=== PATIENT | female | born 1970 ===

== ENCOUNTER 2016-09-11 19:44 | Emergency (ER) | payer OTHER ==
[2016-09-11 20:25] VITALS: BP 126/81; PULSE 108; RESP 18; O2SAT 99
[2016-09-11 20:38] VITALS: TEMP 98.7
--- NOTE | 2016-09-11 21:26 | C.PDOC ---
History Of Present Illness Patient complaining of left arm pain for 2 days that is aching and throbbing in nature, starts in the shoulder and radiates to elbow. Patient has history of RA but not taking any medications. She did not take any medication for pain. Denies any injury, numbness, weakness, fever, swelling, redness. Time Seen by Provider: 09/11/16 20:32 Chief Complaint (Nursing): Upper Extremity Problem/Injury History Per: Patient History/Exam Limitations: no limitations Onset/Duration Of Symptoms: Days Current Symptoms Are (Timing): Still Present Quality: Aching Severity: Moderate Exacerbating Factor(s): Movement Recent travel outside of the [place]: No Additional History Per: Patient Past Medical History Reviewed: Historical Data, Nursing Documentation, Vital Signs Vital Signs: Last Vital Signs Temp 98.7 F 09/11/16 20:36 Pulse 108 H 09/11/16 20:22 Resp 18 09/11/16 20:22 BP 126/81 09/11/16 20:22 Pulse Ox 99 09/12/16 11:24 - Medical History PMH: Arthritis, Asthma, Diabetes, Rheumatoid Arthritis Surgical History: Cholecystectomy Family History: States: Unknown Family Hx - Social History Hx Tobacco Use: No Hx Alcohol Use: No Hx Substance Use: No - Immunization History Hx Tetanus Toxoid Vaccination: No Hx Influenza Vaccination: Yes Hx Pneumococcal Vaccination: No Review Of Systems Except As Marked, All Systems Reviewed And Found Negative. Constitutional: Negative for: Fever, Chills, Other (Injury) Musculoskeletal: Positive for: Arm Pain (Left arm pain. Starts iin shoulder radiated to the elbow.). Negative for: Other (Swelling nor redness) Neurological: Negative for: Weakness, Numbness Physical Exam - Physical Exam Appears: Non-toxic, No Acute Distress Skin: Warm, Dry Head: Atraumatic, Normacephalic Eye(s): bilateral: Normal Inspection Neck: Normal ROM Cardiovascular: Rhythm Regular, No Murmur Respiratory: Normal Breath Sounds, No Rales, No Rhonchi, No Wheezing Extremity: Normal ROM, Tenderness (Tenderness to anterior shoulder and lateral elbow. ), Capillary Refill (<2secs), No Deformity, No Swelling, Other (Painful abduction of left shoulder) Pulses: Left Radial: Normal, Right Radial: Normal Neurological/Psych: Oriented x3, Normal Speech, Normal Motor, Normal Sensation, Normal Reflexes, Other (No focal deficit) ED Course And Treatment O2 Sat by Pulse Oximetry: 99 (RA) Pulse Ox Interpretation: Normal Medical Decision Making Medical Decision Making: Impression: 46 y/o c/o left arm pain for 2 days, likely RA, OA, musculoskeletal. no injury thus low suspicion for fx Plans: -Toradol IM -Reassess and disposition On reassessment, patient is resting comfortably, with mild improvement of left arm pain. Patient remains afebrile, with no extremity numbness or weakness. Patient was advised to follow up with physician/clinic in 1-2 days. Disposition Counseled Patient/Family Regarding: Need For Followup - Disposition Referrals: [facility] [Outside] [facility] [Outside] Disposition: HOME/ ROUTINE Disposition Time: 22:02 Condition: STABLE Additional Instructions: Take pain medication as needed 1-2 pills every 8 hours, with food to not upset stomach. Follow up with orthopedic if pain persists over one week. Prescriptions: Diclofenac 25 mg PO Q8 PRN #30 ect PRN Reason: Pain, Moderate (4-7) Instructions: Rheumatoid Arthritis (DC) - POA Present On Arrival: None - Clinical Impression Clinical Impression: Arm pain, Rheumatoid arthritis - Scribe Statement The provider has reviewed the documentation as recorded by the Scribe Emmie ramirez All medical record entries made by the Coryibe were at my direction and personally dictated by me. I have reviewed the chart and agree that the record accurately reflects my personal performance of the history, physical exam, medical decision making, and the department course for this patient. I have also personally directed, reviewed, and agree with the discharge instructions and disposition.
== END 2016-09-11 22:10 | disposition home or self-care (01) ==
LOC: C.ER 19:44
DX: M06.9 Rheumatoid arthritis, unspecified (principal); M79.602 Pain in left arm
CPT/HCPCS: 96372; 99283; J1885

== ENCOUNTER 2017-02-04 16:19 | Emergency (ER) | payer MEDICAID, OTHER ==
[2017-02-04 16:20] VITALS: BMI 32.8
[2017-02-04] MEDS ORDERED: Sodium Chloride 0.9% 1,000 ML IV ONE ×2 (16:48→18:24)
[2017-02-04] MEDS ORDERED: Sodium Chloride 0.9% 1,000 ML ONE ×2 (17:15→18:32)
[2017-02-04 17:17] LABS: BASO # 0.1 K/uL (0.0-0.2); BASO % 0.9 % (0.0-2.0); EOS % 0.5 % (0.0-4.0); HEMATOCRIT 40.3 % (34.0-47.0); LYMPH # 1.9 K/uL (1.0-4.3); MEAN CELL VOLUME 84.7 fL (81.0-99.0); MEAN CORPUSCULAR HEMOGLOBIN 28.5 pg (27.0-31.0); MEAN CORPUSCULAR HGB CONC 33.6 g/dL (33.0-37.0); MEAN PLATELET VOLUME 8.3 fL (7.2-11.7); MONO # 0.7 K/uL (0.0-0.8); RED CELL DISTRIBUTION WIDTH 14.3 % (11.5-14.5)
[2017-02-04 17:19] LABS: WHITE BLOOD COUNT 9.4 K/uL (4.8-10.8)
[2017-02-04 17:24] LABS: CHLORIDE 95 mmol/L (98-107); POTASSIUM 4.1 mmol/L (3.6-5.2); SODIUM 132 mmol/L (132-148)
[2017-02-04 17:26] LABS: BILIRUBIN,TOTAL 0.7 mg/dL (0.2-1.3); GFR AFRICAN-AMERICAN > 60
[2017-02-04 17:27] LABS: ALB/GLOB RATIO 1.1 (1.0-2.1); ALKALINE PHOSPHATASE 110 U/L (38-126); ALT/SGPT 47 U/L (9-52); AST/SGOT 32 U/L (14-36); BLOOD UREA NITROGEN 13 mg/dL (7-17); CALCIUM 9.5 mg/dl (8.6-10.4); CARBON DIOXIDE 19 mmol/L (22-30); GLUCOSE,RANDOM 385 mg/dL (65-105); TOTAL PROTEIN 8.9 g/dL (6.3-8.3)
[2017-02-04 17:34] LABS: RBC URINE 3 /hpf (0-3); URINE BACTERIA RARE (<OCC); URINE BILIRUBIN NEGATIVE (NEGATIVE); URINE BLOOD NEGATIVE (NEGATIVE); URINE COLOR Yellow (YELLOW); URINE GLUCOSE (UA) 3+ mg/dL (Normal); URINE KETONE 1+ mg/dL (NEGATIVE); URINE LEUKOCYTE ESTERASE 1+ Leu/uL (Negative); URINE PROTEIN NEGATIVE (NEGATIVE); URINE UROBILINOGEN NORMAL mg/dL (0.2-1.0); WBC URINE 8 /hpf (0-5)
[2017-02-04] MEDS ORDERED: (Novolin R) Insulin Human Regular 100 units/ml vial IV STA (17:37)
[2017-02-04] MEDS ORDERED: (Novolin R) Insulin Human Regular 100 units/ml vial ONE (17:45)
[2017-02-04 18:01] LABS: VENOUS BLOOD GAS BASE EXCESS -1.1 mmol/L (0.0-2.0); VENOUS BLOOD GAS PCO2 42 mmHg (40-60); VENOUS BLOOD PH 7.37 (7.32-7.43)
[2017-02-04] MEDS ORDERED: Morphine 4 MG/ML VIAL ONE (18:32)
--- NOTE | 2017-02-04 18:34 | CT ---
PROCEDURE: CT Abdomen and Pelvis without intravenous or oral contrast HISTORY: Right flank/RLQ pain. COMPARISON: 10/05/2016 abdominal ultrasound. TECHNIQUE: Technique Contiguous axial images of the abdomen and pelvis without intravenous or oral contrast. Radiation dose: Total exam DLP = 619.22 mGy-cm. This CT exam was performed using one or more of the following dose reduction techniques: Automated exposure control, adjustment of the mA and/or kV according to patient size, and/or use of iterative reconstruction technique. FINDINGS: LOWER THORAX: Unremarkable. LIVER: Hepatic steatosis. No focal masses. No intrahepatic bile duct dilatation or perihepatic ascites. GALLBLADDER AND BILE DUCTS: Status post cholecystectomy. No abnormality is seen in the gallbladder fossa. PANCREAS: Unremarkable. No ductal dilatation. SPLEEN: Unremarkable. No splenomegaly. ADRENALS: Small right adrenal mass likely adrenal adenoma less than 1 cm. KIDNEYS AND URETERS: Unremarkable. No hydronephrosis. BLADDER: Unremarkable. No calculus. REPRODUCTIVE: Unremarkable. APPENDIX: Unremarkable. Normal appendix. STOMACH AND BOWEL: Unremarkable. No obstruction. No gross mural thickening. PERITONEUM: Unremarkable. No significant fluid collection. No free air. LYMPH NODES: Unremarkable. No enlarged lymph nodes. VASCULATURE: Unremarkable. No aortic aneurysm. BONES: No acute fracture. OTHER FINDINGS: None . IMPRESSION: No significant or acute findings to account for/ related to the clinical presentation. Additional benign and/or incidental findings described above.
[2017-02-04 18:51] VITALS: O2SAT 100
[2017-02-04 20:57] VITALS: BP 125/80; RESP 16
--- NOTE | 2017-02-04 20:57 | US ---
EXAM: US Pelvis Complete, Transabdominal CLINICAL HISTORY: 46 years old, female; Pain; Pelvic pain; Prior surgery; Surgery date: 6+ months; Surgery type: Two c-sections; Additional info: Right pelvic TECHNIQUE: Real-time transabdominal pelvic ultrasound (complete) with image documentation. COMPARISON: No relevant prior studies available. FINDINGS: Uterus/cervix: Retroverted uterus. Uterus measures 7.6 x 4.2 x 3.9 cm in size. No myometrial mass. Endometrium: 0.4 cm in thickness. Right ovary: 1.9 x 1.2 x 2.3 cm in size. No mass. Normal flow. Left ovary: 1.9 x 1.6 x 2.0 cm in size. No mass. Normal flow. Free fluid: No significant free fluid. Bladder: Unremarkable as visualized. IMPRESSION: 1.No acute findings. EXAM: US Pelvis, Transvaginal CLINICAL HISTORY: 46 years old, female; Pain; Pelvic pain; Prior surgery; Surgery date: 6+ months; Surgery type: Two c-sections; Additional info: Right pelvic TECHNIQUE: Real-time transvaginal pelvic ultrasound (complete) with image documentation. Transvaginal imaging was used for better evaluation of the endometrium and adnexa. COMPARISON: No relevant prior studies available. FINDINGS: Uterus/cervix: Retroverted uterus. Uterus measures 7.6 x 4.2 x 3.9 cm in size. No myometrial mass. Endometrium: 0.4 cm in thickness. Right ovary: 1.9 x 1.2 x 2.3 cm in size. No mass. Normal flow. Left ovary: 1.9 x 1.6 x 2.0 cm in size. No mass. Normal flow. Free fluid: No significant free fluid. Bladder: Empty bladder which cannot be evaluated with this probe. IMPRESSION: 1.No acute findings.
--- NOTE | 2017-02-04 21:20 | C.PDOC ---
Time Seen by Provider: 02/04/17 16:39 Chief Complaint (Nursing): Abdominal Pain History Per: Patient Onset/Duration Of Symptoms: Days (2) Current Symptoms Are (Timing): Still Present Severity: Moderate Location Of Pain/Discomfort: RLQ Radiation Of Pain To:: Back Quality Of Discomfort: "Pain" Exacerbating Factors: Movement Alleviating Factors: None Additional History Per: Prior Records Abnormal Vaginal Bleeding: No Past Medical History Reviewed: Historical Data, Nursing Documentation, Vital Signs Vital Signs: Last Vital Signs Temp 98.6 F 02/04/17 20:56 Pulse 78 02/04/17 20:56 Resp 16 02/04/17 20:56 BP 125/80 02/04/17 20:56 Pulse Ox 100 02/04/17 20:56 - Medical History PMH: Arthritis, Asthma, Diabetes, Hypercholesterolemia, Rheumatoid Arthritis Surgical History: Cholecystectomy Family History: States: Unknown Family Hx - Social History Hx Tobacco Use: No Hx Alcohol Use: No Hx Substance Use: No - Immunization History Hx Tetanus Toxoid Vaccination: No Hx Influenza Vaccination: Yes Hx Pneumococcal Vaccination: No Review Of Systems Except As Marked, All Systems Reviewed And Found Negative. Constitutional: Negative for: Fever Cardiovascular: Negative for: Chest Pain Respiratory: Negative for: Shortness of Breath Gastrointestinal: Negative for: Nausea, Vomiting, Diarrhea Genitourinary: Negative for: Dysuria, Vaginal Discharge, Vaginal Bleeding Musculoskeletal: Positive for: Back Pain (right lower). Negative for: Neck Pain Skin: Negative for: Rash Neurological: Negative for: Weakness, Numbness Physical Exam - Physical Exam Appears: Non-toxic, No Acute Distress Skin: Normal Color, Warm, Dry, No Rash Head: Atraumatic, Normacephalic Eye(s): bilateral: Normal Inspection, PERRL, EOMI Neck: Normal ROM, Supple Cardiovascular: Rhythm Regular Respiratory: Normal Breath Sounds, No Accessory Muscle Use Gastrointestinal/Abdominal: Soft, Tenderness (RLQ), No Guarding, No Rebound Back: No CVA Tenderness Extremity: Normal ROM Neurological/Psych: Oriented x3, Normal Motor, Normal Sensation ED Course And Treatment - Laboratory Results Result Diagrams: 02/04/17 17:13 02/04/17 17:13 Interpretation Of Abnormal: Hyperglycemia Urine POC: Negative O2 Sat by Pulse Oximetry: 100 Pulse Ox Interpretation: Normal - CT Scan/US CT abd/pelv Other Rad Studies (CT/US): Read By Radiologist, Radiology Report Reviewed CT/US Interpretation: IMPRESSION: No significant or acute findings to account for/ related to the clinical presentation. Additional benign and/or incidental findings described above. Pelvic US Other Rad Studies (CT/US): Read By Radiologist, Radiology Report Reviewed CT/US Interpretation: IMPRESSION: 1. No acute findings. Progress - Interventions Interventions:: Observation, Intravenous fluid - Medications Administered Intravenous: NSAID, Opiate, Other (insulin) - Data Reviewed Data Reviewed: Lab, Diagnostic imaging, Old records - Patient Status Patient status: Mostly improved - Continuity of Care Discussed patient case with:: Patient, ED Nurse - Patient Plan Patient Plan: Discharge, F/U with PCP, Continue present meds Disposition Counseled Patient/Family Regarding: Studies Performed, Diagnosis, Need For Followup, Rx Given - Disposition Referrals: Miki Conroy MD [Staff Provider] - Disposition: HOME/ ROUTINE Disposition Time: 21:22 Condition: IMPROVED Additional Instructions: Drink plenty of fluids. Follow up with your doctor within 1-2 days. Return to the ER if you develop fever, vomiting, worsening of symptoms or if you have any other concerns. Prescriptions: Naproxen [Naprosyn] 1 tab PO BID PRN #20 tab PRN Reason: Pain Instructions: Abdominal Pain (ED) Forms: [facility] ([place]) - Clinical Impression Clinical Impression: Right sided abdominal pain
[2017-02-04 21:35] VITALS: PULSE 70; TEMP 98
== END 2017-02-04 21:34 | disposition home or self-care (01) ==
LOC: C.ER 16:19
DX: R10.31 Right lower quadrant pain (principal)
CPT/HCPCS: 74176; 76830; 76856; 80053; 81001; 82803; 82948; 84703; 85025; 96361; 96374; 96375; 99285; J1885; J2270; J7040

== ENCOUNTER 2018-08-01 16:24 | Emergency (ER) | payer MEDICAID, OTHER ==
[2018-08-01 16:24] VITALS: BMI 32.8
[2018-08-01 16:54] VITALS: RESP 20; O2SAT 98
--- NOTE | 2018-08-01 20:44 | C.PDOC ---
History Of Present Illness Patient is a 48 year old female, with a PMHx of neuropathy, who presents to the ED c/o right shoulder pain for the past few days. Patient reports that it hurts to move her right arm secondary to pain and states that it radiates to right chest. She also reports pain to her left Achilles tendon that she has had for the past few months, but worsened over the past few days. She states that she has been able to ambulate with limp due to pain in back of heel. She states that she takes amitriptyline for her neuropathy and has been told that's why she could be having her Achilles pain. She denies any left sided CP or SOB. Time Seen by Provider: 08/01/18 19:24 Chief Complaint (Nursing): Chest Pain History Per: Patient History/Exam Limitations: no limitations Onset/Duration Of Symptoms: Days Current Symptoms Are (Timing): Still Present Quality: "Pain" (right shoulder) Recent travel outside of the [place]: No Additional History Per: Patient Past Medical History Reviewed: Historical Data, Nursing Documentation, Vital Signs Vital Signs: Last Vital Signs Temp 98.5 F 08/01/18 16:50 Pulse 110 H 08/01/18 16:50 Resp 20 08/01/18 16:50 BP 151/96 H 08/01/18 16:50 Pulse Ox 98 08/01/18 16:50 - Medical History PMH: Arthritis, Asthma, Diabetes, Fibromyalgia, Hypercholesterolemia, Hypothyroidism, Rheumatoid Arthritis Surgical History: Cholecystectomy (X2) Family History: States: Unknown Family Hx - Social History Hx Tobacco Use: No Hx Alcohol Use: No Hx Substance Use: No - Immunization History Hx Tetanus Toxoid Vaccination: No Hx Influenza Vaccination: Yes Hx Pneumococcal Vaccination: No Review Of Systems Cardiovascular: Negative for: Chest Pain (left sided) Respiratory: Negative for: Shortness of Breath Gastrointestinal: Negative for: Nausea, Vomiting, Abdominal Pain Musculoskeletal: Positive for: Shoulder Pain (right shoulder radiating to right chest), Foot Pain (left achilles tendon pain ) Physical Exam - Physical Exam Appears: Non-toxic, No Acute Distress Skin: Normal Color, Warm, Dry Head: Atraumatic, Normacephalic Neck: Normal ROM, Supple Chest: Symmetrical, No Deformity, No Tenderness Cardiovascular: Rhythm Regular, No Murmur Respiratory: Normal Breath Sounds, No Rales, No Rhonchi, No Wheezing Gastrointestinal/Abdominal: Soft, No Tenderness Extremity: Normal ROM (able to plantar flex and dorsiflex left foot with no issue, right shoulder able to adduct to 90 degress and able to range the shoulder), Tenderness (tenderness overlying the achilles and tenderness to right shoulder to upper trapezious region), Other (left arm fine, bilateral legs fine) Neurological/Psych: Oriented x3, Normal Speech, Normal Cognition, Normal Motor (left foot), Normal Sensation (left foot) Gait: Steady ED Course And Treatment O2 Sat by Pulse Oximetry: 98 (on RA) Pulse Ox Interpretation: Normal Medical Decision Making Medical Decision Making: Plan: Valium 5mg PO Toradol 30mg PO On re-eval patient reports that pain has subsided significantly. Advised continuing NSAIDs at home, and will write Rx for valium as a muscle relaxant. Patient to follow up with PMD as needed. Return to the ED for any new or worsening symptoms. HR improved, 88 at discharge. Disposition - Disposition Disposition: HOME/ ROUTINE Disposition Time: 23:15 Condition: STABLE Additional Instructions: BRE BARRIENTOS, thank you for letting us take care of you today. Your provider was Laisha Miller MD and you were treated for CHEST PAINS/NECK PAIN. The emergency medical care you received today was directed at your acute symptoms. If you were prescribed any medication, please fill it and take as directed. It may take several days for your symptoms to resolve. Return to the Emergency Department if your symptoms worsen, do not improve, or if you have any other problems. Please contact your doctor or call one of the physicians/clinics you have been referred to that are listed on the Patient Visit Information form that is included in your discharge packet. Bring any paperwork you were given at discharge with you along with any medications you are taking to your follow up visit. Our treatment cannot replace ongoing medical care by a primary care provider outside of the emergency department. Thank you for allowing the [facility] team to be part of your care today. If you had an X-Ray or CT scan: A Radiologist will review the ED reading if any change in treatment is needed we will contact you. If you had a blood, urine, or wound culture: It will take several days for the results, if any change in treatment is needed we will contact you. If you had an STI test: It will take 48 hours for the results. Please call after 1 week if you have not heard back. Prescriptions: diaZEpam [Valium] 5 mg PO TID PRN #10 tab PRN Reason: Muscle Spasm Instructions: Muscle and Bone Pain (DC) Forms: [facility] (Citizen [place]) - Clinical Impression Clinical Impression: Muscle spasm of right shoulder, Achilles tendon pain - Scribe Statement The provider has reviewed the documentation as recorded by the Coryibbrad Holloway All medical record entries made by the Coryibe were at my direction and personally dictated by me. I have reviewed the chart and agree that the record accurately reflects my personal performance of the history, physical exam, medical decision making, and the department course for this patient. I have also personally directed, reviewed, and agree with the discharge instructions and disposition.
[2018-08-01 23:29] VITALS: BP 150/88; PULSE 88; TEMP 98.1
== END 2018-08-01 23:28 | disposition home or self-care (01) ==
LOC: C.ER 16:24
DX: M62.838 Other muscle spasm (principal); M79.672 Pain in left foot
CPT/HCPCS: 93005; 96372; 99283; J1885